=== PATIENT | male | born 1940 | race Caucasian/White ===

== ENCOUNTER 2017-02-09 04:54 | Inpatient (IN) | payer OTHER ==
[2017-01-20 14:48] VITALS: BMI 28.0
--- NOTE | 2017-01-20 15:28 | PAT Medication Instructions ---
Service Date Jan 20, 2017. Current Home Medication List Aspirin (Aspirin Ec), 81 MG PO QPM Aspirin (Aspirin Ec), 325 MG PO PRN Bimatoprost (Lumigan), 1 DROPS OPR HS Cholecalciferol (Vitamin D3), 1 TAB PO Q2D Fish Oil ([place]on-3), 2 CAP PO QAM Ibuprofen-Diphenhydramine Citr (Advil Pm), 1 TAB PO PRN Laxative (Laxative), 1 DOSE PO PRN Simvastatin (Zocor), 40 MG PO QPM Timolol Maleate (Ophth) (Timoptic-Xe 0.5% Oph), 1 DROPS OPR BID Trazodone Hcl (Trazodone), 50 MG PO HS Medication Instructions For Your Scheduled Surgery - Hold the following medications 2 weeks prior to surgery: Fish Oil (Vernon-3), 2 CAP PO QAM - Hold the following medications 7 days prior to surgery: Aspirin (Aspirin Ec), 325 MG PO PRN Ibuprofen-Diphenhydramine Citr (Advil Pm), 1 TAB PO PRN - Hold the following medications the morning of surgery: Laxative (Laxative), 1 DOSE PO PRN Cholecalciferol (Vitamin D3), 1 TAB PO Q2D - Take the following medications the morning of surgery with a sip of water: Timolol Maleate (Ophth) (Timoptic-Xe 0.5% Oph), 1 DROPS OPR BID - Take the following medications as scheduled the night before surgery: Timolol Maleate (Ophth) (Timoptic-Xe 0.5% Oph), 1 DROPS OPR BID (bring with you to hospital on day of surgery) Bimatoprost (Lumigan), 1 DROPS OPR HS (bring with you to hospital on day of surgery) Aspirin (Aspirin Ec), 81 MG PO QPM Trazodone Hcl (Trazodone), 50 MG PO HS Simvastatin (Zocor), 40 MG PO QPM Laxative (Laxative), 1 DOSE PO PRN If you have any questions please call us at [phone] or [phone] ( [place]) or [phone]
--- NOTE | 2017-01-20 16:09 | DIAGNOSTIC IMAGING REPORT ---
CHEST 2 VIEWS ROUTINE CLINICAL HISTORY: Preoperative chest COMPARISON STUDY: No previous studies for comparison. FINDINGS: The cardiac and mediastinal contours are normal. There is no evidence of focal pulmonary consolidation. There is no evidence of failure. No pleural effusions are visualized.[ IMPRESSION: No active disease in the chest. Electronically signed by: Wing Chapin M.D. 01/20/2017 4:08 PM Dictated Date/Time: 01/20/2017 4:08 PM
[2017-01-20 16:16] LABS: BASO % 0.3 %; BASO ABS # 0.02 K/uL (0-0.2); COMPLETE YES; EOS % 4.8 %; IG% 0.3 %; LYMPH % 22.7 %; LYMPH ABS # 1.81 K/uL (1.2-3.4); MEAN CELL VOLUME 88.4 fL (80-100); MEAN CORPUSCULAR HEMOGLOBIN 30.8 pg (25-34); MEAN CORPUSCULAR HGB CONC 34.9 g/dl (32-36); MEAN PLATELET VOLUME 9.2 fL (7.4-10.4); MONO % 10.3 %; NEUT % 61.6 %; PLATELET COUNT 237 K/uL (130-400); RED BLOOD COUNT 5.09 M/uL (4.7-6.1); WHITE BLOOD COUNT 7.98 K/uL (4.8-10.8)
[2017-01-20 16:20] LABS: URINE APPEARANCE CLEAR (CLEAR); URINE BILIRUBIN NEG (NEG); URINE COLOR DK YELLOW; URINE NITRITE NEG (NEG); UROBILINOGEN NEG (NEG); ZZUR CULT IF INDIC CLEAN CATCH NO
[2017-01-20 16:27] LABS: PARTIAL THROMBOPLASTIN RATIO 1.1; PROTHROMBIN TIME (PATIENT) 10.8 SECONDS (9.0-12.0)
[2017-01-20 16:28] LABS: MANUAL MICROSCOPIC REQUIRED? NO; REVIEW REQ? NO
--- NOTE | 2017-02-06 09:00 | HISTORY & PHYSICAL EXAMINATION ---
DATE OF ADMISSION: 02/09/2017 CHIEF COMPLAINT: Left knee pain. HISTORY OF PRESENT ILLNESS: Antonino is a 76-year-old male with a multiple year history of pain in his left knee. He rates his pain a 6-7/10. He has pain with his daily activities. He has limited standing and walking tolerance. Pain is worse with weightbearing. The patient has had injections, arthroscopy, physical therapy and anti-inflammatories without relief. He has failed conservative treatment and is scheduled for left knee replacement. PAST MEDICAL HISTORY: Glaucoma and hypercholesterolemia. He denies heart disease, diabetes or DVT. PAST SURGICAL HISTORY: Prostatectomy, hernia repair, left eye shunt and bilateral knee arthroscopy. SOCIAL HISTORY: The patient drinks 6-7 drinks per week. He quit smoking in 1971. He lives in a 2-story home. He lives alone and is retired. FAMILY HISTORY: Negative for DVT. MEDICATIONS: Simvastatin 40 mg daily, aspirin 81 mg daily, vitamin D3 2,000 international units daily, fish oil 1000, 300 mg daily, timolol 0.5% right eye, Lumigan 1 drop right eye, trazodone 50 mg at bedtime. ALLERGIES: None. REVIEW OF SYSTEMS: See HPI. Ten other systems reviewed, all negative. PHYSICAL EXAMINATION: VITAL SIGNS: Height 6 foot 0. Weight 209 pounds. BMI is 28. GENERAL: This is a well-developed, well-nourished male who is alert and oriented x3. Mood and affect are appropriate. HEAD, EYES, EARS, NOSE, AND THROAT: Normocephalic, atraumatic. Mucous membranes are moist and intact. NECK: Supple without lymphadenopathy. HEART: Regular rate and rhythm without murmurs, rubs or gallops. LUNGS: Clear to auscultation without wheezes or rhonchi. ABDOMEN: Soft and nontender. Bowel sounds are equal and active. EXTREMITIES: No ecchymosis, redness or warmth. He has neutral alignment. Range of motion is from 0-120 degrees with +1 to 2 laxity. He is neurovascularly intact with +5/5 strength. X-RAY EXAMINATION: AP and lateral views show joint space narrowing and osteophyte formation. IMPRESSION: Degenerative joint disease left knee. PLAN: The patient will be admitted for a left total knee arthroplasty. We will plan on aspirin for DVT prophylaxis. The patient's PCP is Dr. Ravinder Martinez in [place].
[~2017-02-09] VITALS: Ht 185.4 cm; Wt 96.0 kg
[2017-02-09] VITALS (8 sets, daily range): BP systolic 102–137; BP diastolic 59–78; PULSE 55–80; TEMP 36.4–36.6; O2SAT 94–98; Ht 185.4 cm; Wt 96.0 kg
[~2017-02-09 04:54] MED LIST: ASPI325T39 PO; ASPI81TA28 PO; BIMA0.01 OPR; CHOL1000 PO; IBUP1TAB PO; LXT PO; OMEG10007 PO; SIMV40TA2 PO; TIMO0.5S2 OPR; TRAZ50TA35 PO
[2017-02-09] MEDS ORDERED: LACTATED RINGER'S 1000ML 1,000 ML IV SCH (06:00)
[2017-02-09] MEDS ORDERED: LACTATED RINGER'S 1000ML 500 ML IV ONE (06:00)
[2017-02-09] MEDS ORDERED: METOCLOPRAMIDE HCL 10 MG TAB PO SCH (06:00)
[2017-02-09] MEDS ORDERED: FAMOTIDINE 20 MG TAB PO SCH (06:00)
[2017-02-09] MEDS ORDERED: ROPIVACAINE 5MG/ML 30 ML 150 MG, BUPIVACAINE/EPINEPHR 0.5% MPF 30 ML, KETOROLAC TROMETH... INFIL SCH ×7 (06:00)
[2017-02-09] MEDS ORDERED: ACETAMINOPHEN 500 MG TAB PO SCH (06:00)
[2017-02-09] MEDS ORDERED: GABAPENTIN 300 MG CAP PO SCH (06:00)
[2017-02-09] MEDS ORDERED: CEFAZOLIN 2000 MG/60 ML D5W 60 ML IV SCH (06:00)
[2017-02-09] MEDS ORDERED: CeleBREX 200 MG CAP PO SCH (06:00)
[2017-02-09] MEDS ORDERED: OXYCODONE HCL 10 MG TABCR (OXYCONTIN) PO SCH (06:00)
[2017-02-09] MEDS ORDERED: POLYMYXIN B SULFATE 100,000 UNITS in NSS 100ML IR SCH (06:00)
[2017-02-09] MEDS ORDERED: LACTATED RINGER'S 1000ML IV SCH (06:00)
[2017-02-09] MEDS ORDERED: VANCOMYCIN INJ 400 MG in NSS 100ML IR SCH (06:00)
[2017-02-09] MEDS ORDERED: BUPIVACAINE 0.5 % 5 MG/1 ML PF 10ML VIAL ONE (06:13)
[2017-02-09] MEDS: TRANEXAMIC ACID INJ 1,000 MG in SODIUM CHLORIDE 0.9% 100ML 100 ML IV SCH ×2 (06:21→12:10)
[2017-02-09] MEDS ORDERED: ORTHO JOINT ANESTHETIC ONE (06:34)
[2017-02-09] MEDS ORDERED: BUPIVACAINE/EPINEPHRINE 0.25% 1:200,000 30 ML VIAL ONE (06:34)
[2017-02-09] MEDS ORDERED: POVIDONE-IODINE OP SOLN 30 ML BTL ONE (06:34)
[2017-02-09] MEDS ORDERED: MIDAZOLAM HCL 1 MG/ML 2ML VIAL ONE (06:43)
[2017-02-09] MEDS ORDERED: FENTANYL CITRATE INJ 50 MCG/1 ML 2 ML VIAL ONE (06:43)
[2017-02-09] MEDS ORDERED: LIDOCAINE HCL 2% 2 ML VIAL (20MG/ML) ONE (06:43)
[2017-02-09] MEDS ORDERED: PROPOFOL IV EMULSION 10 MG/ML 20 ML VIAL IV ONE ×2 (06:43→07:53)
--- NOTE | 2017-02-09 06:51 | History & Physical Bridge Note ---
H&P Re-Evaluation Bridge Note: I have examined the patient, reviewed the History & Physical and in the interval since the performance of the History & Physical I have noted the following changes of clinical significance: No changes noted
[2017-02-09] MEDS ORDERED: ONDANSETRON INJ 2 MG/ML 2 ML VIAL IV PRN ×2 (07:15→08:15)
[2017-02-09] MEDS ORDERED: ATROPINE SULFATE 0.1 MG/ML 5ML SYR IV PRN (07:15)
[2017-02-09] MEDS ORDERED: FENTANYL CITRATE INJ 50 MCG/1 ML 2 ML VIAL IV PRN (07:15)
[2017-02-09] MEDS ORDERED: EpHEDrine SULFATE INJ 50 MG/ML AMP IV PRN (07:15)
[2017-02-09] MEDS ORDERED: EpHEDrine SULFATE 50MG/5ML SYR ONE (07:32)
[2017-02-09] MEDS: BACITRACIN 50000 UNIT VIAL ONE (08:08)
--- NOTE | 2017-02-09 08:10 | [facility] Post Operative Brief Note ---
Immediate Operative Summary Operative Date Feb 09, 2017. Pre-Operative Diagnosis Left Knee Degenerative Joint Disease Post-Operative Diagnosis Left Knee Degenerative Joint Disease Procedure(s) Performed Left Total Knee Arthroplasty, Cemented Surgeon Dr. Rizwan Espinoza Tender Labor Surgeon(s) Joao Biswas PA-C Estimated Blood Loss 50 mL Findings DJD Specimens A: Left Knee Bone and Tissue Complication(s) None Disposition Recovery Room / PACU
[2017-02-09] MEDS ORDERED: TRAMADOL HCL 50 MG TAB PO PRN (08:15)
[2017-02-09] MEDS ORDERED: ALUMINUM/MAGNESIUM/SIMETH (MAALOX MAX) 30 ML UDC PO PRN (08:15)
[2017-02-09] MEDS ORDERED: BISACODYL 10 MG SUPP PR PRN (08:15)
[2017-02-09] MEDS ORDERED: ZOLPIDEM TARTRATE 5 MG TAB PO PRN (08:15)
[2017-02-09] MEDS ORDERED: KETOROLAC TROMETHAMINE 15 MG/ML VIAL IV. PRN (08:15)
[2017-02-09] MEDS ORDERED: MAGNESIUM HYDROXIDE SUSP 30 ML UDC PO PRN (08:15)
[2017-02-09] MEDS ORDERED: SOD PHOSPHATE/SOD BIPHOSPHATE ENEMA 132 ML BTL PR PRN (08:15)
[2017-02-09] MEDS ORDERED: DiphenhydrAMINE HCL 50 MG/ML VIAL IV PRN (08:15)
[2017-02-09] MEDS ORDERED: MoRPHine SULFATE 2 MG/ML CARP IV PRN (08:15)
[2017-02-09] MEDS ORDERED: METOCLOPRAMIDE HCL INJ 5 MG/ML 2 ML VIAL IV PRN (08:15)
[2017-02-09] MEDS ORDERED: TAMSULOSIN HCL 0.4 MG CAP PO PRN (08:15)
[2017-02-09] MEDS ORDERED: MULTIVITAMIN TAB PO SCH (09:00)
--- NOTE | 2017-02-09 09:20 | DIAGNOSTIC IMAGING REPORT ---
LEFT KNEE 1 OR 2 VIEWS ROUTINE CLINICAL HISTORY: Postoperative evaluation. COMPARISON: None FINDINGS: Alignment of the total left knee arthroplasty is anatomic. No fracture or unexpected radiopaque foreign body. Surgical drains are in place. IMPRESSION: Expected findings following total left knee arthroplasty. Electronically signed by: Siva June M.D. 02/09/2017 9:18 AM Dictated Date/Time: 02/09/2017 9:17 AM
--- NOTE | 2017-02-09 10:48 | Anesthesiology Progress Note ---
Anesthesia Post Op Note Date & Time Feb 09, 2017 at 10:47 Vital Signs Pain Intensity: 0 Vital Signs Past 12 Hours Date Time Temp Pulse Resp B/P Pulse Ox O2 Delivery O2 Flow Rate FiO2 02/09/17 10:12 58 18 98 02/09/17 10:12 59 18 02/09/17 10:11 113/61 02/09/17 10:10 36.6 60 20 113/61 98 Nasal Cannula 2 02/09/17 10:07 63 23 98 02/09/17 10:07 62 23 02/09/17 10:05 103/62 02/09/17 10:02 51 18 02/09/17 10:02 51 18 98 02/09/17 10:00 108/60 02/09/17 09:57 52 16 97 02/09/17 09:57 52 16 02/09/17 09:55 108/64 02/09/17 09:52 57 14 02/09/17 09:52 57 14 97 02/09/17 09:50 107/70 02/09/17 09:47 58 21 02/09/17 09:47 59 21 98 02/09/17 09:46 55 20 98 02/09/17 09:46 55 20 02/09/17 09:45 110/68 02/09/17 09:41 57 17 02/09/17 09:41 57 17 98 02/09/17 09:40 115/69 02/09/17 09:36 61 23 02/09/17 09:36 59 23 98 02/09/17 09:35 113/75 02/09/17 09:35 52 18 113/75 98 Nasal Cannula 2 02/09/17 09:31 54 15 97 02/09/17 09:31 54 15 02/09/17 09:30 113/67 02/09/17 09:26 53 17 02/09/17 09:26 53 17 97 02/09/17 09:25 111/61 02/09/17 09:25 55 16 111/61 96 Nasal Cannula 2 02/09/17 09:21 56 15 97 02/09/17 09:21 56 15 02/09/17 09:20 102/71 02/09/17 09:19 57 14 02/09/17 09:19 56 14 96 02/09/17 09:15 114/64 02/09/17 09:14 56 20 98 02/09/17 09:14 54 20 02/09/17 09:10 110/63 02/09/17 09:09 54 22 99 02/09/17 09:09 54 22 02/09/17 09:08 53 23 98 02/09/17 09:08 52 23 02/09/17 09:05 112/64 02/09/17 09:03 58 16 02/09/17 09:03 58 16 96 02/09/17 09:01 95/63 02/09/17 08:58 59 19 02/09/17 08:58 61 19 97 02/09/17 08:55 111/62 02/09/17 08:53 55 15 02/09/17 08:53 55 15 98 02/09/17 08:47 36.0 57 14 101/57 100 Mask 10 02/09/17 05:45 36.6 62 20 137/78 95 Room Air Notes Mental Status: alert / awake / arousable, participated in evaluation Pt Amnestic to Procedure: Yes Nausea / Vomiting: adequately controlled Pain: adequately controlled Airway Patency, RR, SpO2: stable & adequate BP & HR: stable & adequate Hydration State: stable & adequate Neuraxial Anesthesia: was administered, sensory block is resolving Anesthetic Complications: no major complications apparent
[2017-02-09] MEDS: SODIUM CHLORIDE 0.9% 1000ML 1,000 ML IV SCH ×2 (12:08→17:55)
[2017-02-09] MEDS: ACETAMINOPHEN 500 MG TAB PO SCH ×2 (14:12→21:30)
[2017-02-09] MEDS ORDERED: TRANEXAMIC ACID INJ 1,000 MG in SODIUM CHLORIDE 0.9% 100ML 100 ML IV SCH (14:45)
[2017-02-09] MEDS: CEFAZOLIN IV 2,000 MG in DEXTROSE 5% 50ML 50 ML IV SCH (16:05)
--- NOTE | 2017-02-09 16:50 | OPERATIVE REPORT ---
DATE OF OPERATION: 02/09/2017 PREOPERATIVE DIAGNOSIS: Degenerative arthritis, left knee. POSTOPERATIVE DIAGNOSIS: Same. PROCEDURE: Left total knee with patient matched implant. SURGEON: Dr. Espinoza. ALIGNMENT TECHNICIAN: DANNA Stringer. ANESTHESIA: Spinal. BLOOD LOSS: 50 mL. REPLACEMENT FLUIDS: 1500 mL crystalloid. DRAINS: Hemovac x2. CULTURES: None. COMPLICATIONS: None. COMPONENTS USED: [employer] [facility] Knee System: Femur size 7, tibia size 7 x 10, patella size 38. NOTE: Joao Biswas was present and assisted throughout due to the complicated nature of this case. He helped with preparation and set up, first assisted throughout and personally closed the capsule, subcutaneous and skin layers and applied the postoperative dressing. DESCRIPTION: Following satisfactory spinal, the patient was supine. A tourniquet was placed but not inflated. The lower extremity was prepared with ChloraPrep and draped sterilely. Following a surgical time-out, a midline incision was made with a trivector approach. The knee showed grade 4 changes, most marked in the medial and lateral compartments. The cruciate ligaments were excised. The patient matched femoral block was applied. Femoral distal rotation was set and completed. The 4-in-1 block was used to finish preparation of the femur. The patient matched tibial block was applied. Tibial resection was completed. The patella was freehand cut. Soft tissue balancing was completed and a trial reduction showed good tensioning stability on the collateral ligaments, stable range of motion, and the patella tracked well. The trial components were removed, the capsule was prepared with the orthopedic cocktail and after irrigation the components were cemented with Simplex G cement. A Betadine soak was performed. When the cement had hardened, the Betadine was irrigated. Two drains were placed. The arthrotomy was closed with a running suture of 0 V-Loc. The subcutaneous tissues with 2-0 Vicryl and the skin with a running subcuticular stitch of 3-0 V-Loc. Dermabond and a dry dressing were applied. The patient was returned to his bed in stable condition. I attest to the content of the Intraoperative Record and any orders documented therein. Any exceptio ns are noted below.
[2017-02-09] MEDS: TIMOLOL GFS 0.5% OPH SOLN 74 DROPS/5 ML BTL OPR SCH (20:13)
[2017-02-09] MEDS: OXYCODONE HCL 10 MG TABCR (OXYCONTIN) PO SCH (20:13)
[2017-02-09] MEDS: SENNA 8.6 MG TAB PO SCH (20:14)
[2017-02-09] MEDS: TRAZODONE HCL 50 MG TAB PO SCH (20:14)
[2017-02-09] MEDS: ASPIRIN 81 MG ECTAB PO SCH (20:14)
[2017-02-09] MEDS: SIMVASTATIN 40 MG TAB PO SCH (20:15)
[2017-02-09] MEDS: BIMATOPROST 0.01% OP SOLN 2.5 ML BTL OPR SCH (21:30)
[2017-02-10] MEDS: CEFAZOLIN IV 2,000 MG in DEXTROSE 5% 50ML 50 ML IV SCH (00:02)
[2017-02-10] MEDS: SODIUM CHLORIDE 0.9% 1000ML 1,000 ML IV SCH (03:44)
[2017-02-10 03:50] VITALS: BP 94/53; PULSE 63; TEMP 36.5; O2SAT 96
[2017-02-10] MEDS: ACETAMINOPHEN 500 MG TAB PO SCH ×3 (05:34→21:41)
[2017-02-10 05:36] VITALS: BP 118/68
[2017-02-10 05:55] LABS: HEMATOCRIT 39.9 % (42-52); MEAN CELL VOLUME 90.1 fL (80-100); MEAN CORPUSCULAR HEMOGLOBIN 31.4 pg (25-34); MEAN CORPUSCULAR HGB CONC 34.8 g/dl (32-36); MEAN PLATELET VOLUME 9.3 fL (7.4-10.4); PLATELET COUNT 221 K/uL (130-400); RED BLOOD COUNT 4.43 M/uL (4.7-6.1); WHITE BLOOD COUNT 14.63 K/uL (4.8-10.8)
[2017-02-10 06:39] LABS: BUN/CREATININE RATIO 16.7 (10-20); CALCIUM 8.7 mg/dl (8.5-10.1); CREATININE 0.95 mg/dl (0.60-1.40); POTASSIUM 4.7 mmol/L (3.5-5.1)
--- NOTE | 2017-02-10 07:46 | Orthopedic Progress Note ---
Orthopedic Progress Note Date of Service Feb 10, 2017. Subjective Post OP Day: 1 Reports: feeling well, Denies: SOB, calf pain, chest pain, light headedness, nausea / vomiting Objective calves soft nontender, N/V intact, dressing C/D/I, A&O x3, toes mobile, hemovac drainage (350/175cc per shift) Date Time Temp Pulse Resp B/P Pulse Ox O2 Delivery O2 Flow Rate FiO2 02/10/17 07:30 Room Air 02/10/17 05:36 118/68 02/10/17 03:50 36.5 63 16 94/53 96 Room Air 02/09/17 23:15 36.5 63 18 117/61 97 Room Air 02/09/17 20:00 Room Air 02/09/17 19:02 36.5 69 18 118/63 98 Room Air 02/09/17 16:40 Room Air 02/09/17 14:54 36.4 55 16 109/63 98 Nasal Cannula 2.0 02/09/17 13:40 36.6 80 19 102/59 94 Nasal Cannula 2.0 02/09/17 12:34 57 16 113/65 98 Nasal Cannula 2.0 02/09/17 11:43 Nasal Cannula 2.0 02/09/17 11:41 56 20 105/60 96 Nasal Cannula 2.0 02/09/17 11:41 36.4 58 16 107/59 95 Nasal Cannula 2.0 02/09/17 11:39 Nasal Cannula 2.0 02/09/17 11:13 36.4 56 16 107/62 98 Nasal Cannula 2.0 02/09/17 10:12 58 18 98 02/09/17 10:12 59 18 02/09/17 10:11 113/61 02/09/17 10:10 36.6 60 20 113/61 98 Nasal Cannula 2 02/09/17 10:07 63 23 98 02/09/17 10:07 62 23 02/09/17 10:05 103/62 02/09/17 10:02 51 18 02/09/17 10:02 51 18 98 02/09/17 10:00 108/60 02/09/17 09:57 52 16 97 02/09/17 09:57 52 16 02/09/17 09:55 108/64 02/09/17 09:52 57 14 02/09/17 09:52 57 14 97 02/09/17 09:50 107/70 02/09/17 09:47 58 21 02/09/17 09:47 59 21 98 02/09/17 09:46 55 20 98 02/09/17 09:46 55 20 02/09/17 09:45 110/68 02/09/17 09:41 57 17 02/09/17 09:41 57 17 98 02/09/17 09:40 115/69 02/09/17 09:36 61 23 02/09/17 09:36 59 23 98 02/09/17 09:35 113/75 02/09/17 09:35 52 18 113/75 98 Nasal Cannula 2 02/09/17 09:31 54 15 97 02/09/17 09:31 54 15 02/09/17 09:30 113/67 02/09/17 09:26 53 17 02/09/17 09:26 53 17 97 02/09/17 09:25 111/61 02/09/17 09:25 55 16 111/61 96 Nasal Cannula 2 02/09/17 09:21 56 15 97 02/09/17 09:21 56 15 02/09/17 09:20 102/71 02/09/17 09:19 57 14 02/09/17 09:19 56 14 96 02/09/17 09:15 114/64 02/09/17 09:14 56 20 98 02/09/17 09:14 54 20 02/09/17 09:10 110/63 02/09/17 09:09 54 22 99 02/09/17 09:09 54 22 02/09/17 09:08 53 23 98 02/09/17 09:08 52 23 02/09/17 09:05 112/64 02/09/17 09:03 58 16 02/09/17 09:03 58 16 96 02/09/17 09:01 95/63 02/09/17 08:58 59 19 02/09/17 08:58 61 19 97 02/09/17 08:55 111/62 02/09/17 08:53 55 15 02/09/17 08:53 55 15 98 02/09/17 08:47 36.0 57 14 101/57 100 Mask 10 Laboratory Results 24 Hours: Test 02/10/17 05:33 Hematocrit 39.9 % Hemoglobin 13.9 g/dL Assessment & Plan Assessment: POD#1 sp left TKA Inhouse Planning Pain Management: Oxycontin, PO Tylenol, Oxy IR DVT Prophylaxis: TEDs, SCDs, ASA Discharge Planning Discharge Planning: home with home health (DC HOME TOMORROW WITH LOCAL HOME PT AGENCY. CM TO EVALUATE. HOLD DC TODAY DUE TO HEMOVAC OUTPUT.)
--- NOTE | 2017-02-10 07:47 | Discharge Instructions ---
Discharge Instructions Date of Service Feb 10, 2017. Admission Reason for Admission: Left Degenerative Arthritis - Leg/Knee Discharge Discharge Diagnosis / Problem: SP LEFT TKA Discharge Goals Goal(s): Decrease discomfort, Improve function, Increase independence Activity Recommendations Activity Limitations: per Instructions/Follow-up section . Instructions / Follow-Up Instructions / Follow-Up ACTIVITY RECOMMENDATIONS: SELF CARE INSTRUCTIONS AFTER TOTAL KNEE REPLACEMENT A. You may need to continue a physical therapy program after discharge from the hospital. There are several options available to you. Your doctor will assist you in selecting the best one for you. 1. An out-patient facility 2 to 3 times a week for therapy or home therapy. 2. Continue working on all exercises taught to you in the hospital. Your goals should be to increase bending of your knee to 90 degrees and beyond and to fully straighten your knee. B. You may progress at your own pace from walking with a walker or crutches to a cane; then to no assistive devices. C. Make walking a part of your daily routine. Be up as much as comfortable with rest periods throughout the day. Rest with leg elevation is very important. Use the ice wrap frequently for the first 3-4 weeks. D. There are no restrictions on activities. You may ride in a car, shop, participate in nail galvanizer and all social activities. E. Wear the long elastic stockings (GENI hose) 20 hours a day for 2 weeks after surgery. They can be removed several times a day for laundering and for a bath. F. You may shower, no tub baths until cleared by your doctor. SPECIAL CARE INSTRUCTIONS: VERY IMPORTANT TO READ AND REVIEW A. There are a few signs you need to watch for after you are home. Call [facility] if you notice any of the followin. Increased severe knee pain. Some pain is expected especially when you exercise. 2. Increased swelling in your leg or knee; pain or swelling of the calf muscle in either lower leg. 3. Any fluid drainage from the incision. 4. Shortness of breath or chest pain. B. Please call [facility] at if you have any concerns or questions about your operation or recovery. The doctor or his nurse will return your call promptly. C. You must take antibiotics before dental work, bladder, bowel or other surgery. Your doctor will provide you with a permanent care to carry describing this precaution. IMPORTANT: * REMEMBER TO TAKE ASPIRIN, 81 MG, TWICE DAILY FOR 4 WEEKS UNLESS OTHERWISE DIRECTED. THIS IS YOUR BLOOD THINNER. * HIGH RISK PATIENTS MAY BE PRESCRIBED A STRONGER BLOOD THINNER. THIS WILL BE PROVIDED AT DISCHARGE. * CALL IF INCREASED PAIN, REDNESS, DRAINAGE OR FEVER GREATER THAT 101. * WEAR GENI HOSE 20 HOURS PER DAY FOR 2 WEEKS. DERMABOND Prineo- This is a mesh tape dressing that is covered with glue. It should remain in place until the incision is properly healed, usually 10-14 days. This dressing is designed to naturally slough off. You may trim the excess mesh tape as it peels off. Incision may be briefly wet in a shower. Dry immediately by blotting with a clean, dry towel. Do not bath or swim until instructed by your doctor. Do not scratch, rub, or pick at the dressing. Do not apply any topical ointments or lotions until dressing is completely removed and/or instructed by your doctor. There may be a small piece of suture material at one end of your incision. Do not pull or trim this. If it is bothersome or catching on clothing, you may cover it with a band-aid. FOLLOW UP VISIT: If appointment is not already scheduled: Please call [facility] to make a follow-up appointment for 2 weeks after your surgery at . Current Hospital Diet Patient's current hospital diet: Diabetes Type 2 Diet Discharge Diet Recommended Diet: Regular Diet Procedures Procedures Performed: Left Total Knee Arthroplasty, Cemented Pending Studies Studies pending at discharge: no Medical Emergencies . Who to Call and When: Medical Emergencies: If at any time you feel your situation is an emergency, please call 911 immediately. . Non-Emergent Contact Non-Emergency issues call your: Surgeon . "Provider Documentation" section prepared by Magnolia Olsen. VTE Core Measure Inpt VTE Proph given/why not?: Leila Lindsay, SCD's PA Drug Monitoring Program Search Results: patient reviewed within database, no issues identified
[2017-02-10 08:01] VITALS: BP 125/73; PULSE 59; TEMP 36.6; O2SAT 98
[2017-02-10] MEDS: PANTOprazole SOD 40 MG TAB PO SCH (08:26)
[2017-02-10] MEDS: OXYCODONE HCL 10 MG TABCR (OXYCONTIN) PO SCH ×2 (08:27→21:38)
[2017-02-10] MEDS: ASPIRIN 81 MG ECTAB PO SCH ×2 (08:27→21:39)
[2017-02-10] MEDS: MULTIVITAMIN TAB PO SCH (08:27)
[2017-02-10] MEDS: TIMOLOL GFS 0.5% OPH SOLN 74 DROPS/5 ML BTL OPR SCH ×2 (08:27→19:50)
[2017-02-10 11:57] VITALS: BP 125/77; PULSE 61; TEMP 36.4; O2SAT 92
[2017-02-10 15:51] VITALS: BP 116/64; PULSE 65; TEMP 36.7; O2SAT 98
[2017-02-10] MEDS: SIMVASTATIN 40 MG TAB PO SCH (19:49)
[2017-02-10] MEDS ORDERED: NURSING VERBAL MED ORDER ONE (20:15)
[2017-02-10] MEDS: SENNA 8.6 MG TAB PO SCH (21:39)
[2017-02-10] MEDS: BIMATOPROST 0.01% OP SOLN 2.5 ML BTL OPR SCH (21:40)
[2017-02-10] MEDS: TRAZODONE HCL 50 MG TAB PO SCH (21:40)
[2017-02-10 23:06] VITALS: BP 112/65; PULSE 50; TEMP 36.7; O2SAT 95
[2017-02-10] MEDS: OXYCODONE HCL IR 5 MG TAB (IMMEDIATE RELEASE) PO PRN (23:22)
[2017-02-11] VITALS (7 sets, daily range): BP systolic 118–138; BP diastolic 62–74; PULSE 63–72; TEMP 36.3–36.8; O2SAT 93–99
--- NOTE | 2017-02-11 05:08 | Medical Consult ---
History General Date of Service: Feb 11, 2017. Stated Complaint: Left Degenerative Arthritis - Leg/Knee HPI The patient is a 76 year old male with past medical hx of hypercholesterolemia , Left knee Degenerative Arthritis -admitted to [facility] for left knee arthroplasty underwent left total knee arthroplasty By Dr Espinoza on 02/09/17 The patient's primary care provider is The patient's PCP is Dr. Ravinder Martinez in [place]. pt had un eventful post op recovery Today approx at 5: 30 am -pt went to bathroom to urinate , afterwards while in front of wash basin -he felt wave of nausea , diaphoresis , dizzy spell , lightheaded -felt like passing out Nursing was assisting him saw that pt turned pale , diaphoretic ,cold clammy - not responding to his name -" code purple " was called pt never lost consciousness, did not sustain any fall , pt was eased into his bed from wheel chair Vitals SBP in 114 ; pt was bradycardic in 50's , no hypoxia ; blood sugar 96 pt was given orange juice no complain of chest tightness or heaviness pt started to feel well after resting for 5 minutes , feels very wiped out and weak Nausea subsided without any meds complaining of pain on Left knee surgical site , pt still has Hemovac attached 12 leak EKG sinus bradycardia left axis deviation , no change compared to prior EKG pt was able to sit up , able to have normal conversation -asking about what happened Episode of Dizzy spell /pre syncope associated with vagal response of nausea / diaphoresis /bradycardia -in a setting with urinary Urgency /worsening of pain on left knee pt is counselled regarding benign nature of the episode No need to transfer to Tele monitoring Consult /evaluation by Medicine team placed Ortho attending updated by Nursing Historian: patient Onset: this morning Severity: moderate Complaint Status: resolved Quality of Pain: throbbing (on left knee surgical site ), sharp (on left knee surgical site ) Modifying Factors: elevation (elevation of leg end of bed ), rest Review of Systems Constitutional: reports: diaphoresis, weakness Cardiovascular: reports: syncope Gastrointestinal: reports: nausea Musculoskeletal: reports: other (left knee pain at surgical site ) Neurologic: reports: dizziness, numbness, tingling, vertigo All Other Symptoms All Other Systems: Reviewed and Negative Social History Hx Tobacco Use In Past Year?: No (SMOKED 1 PPD X 20 YRS-QUIT 1971) Smoking Status: Former Smoker Allergies Coded Allergies: No Known Allergies (Unverified , 02/09/17) Current Medications Reported Home Medications Medications Dose Route/Sig Max Daily Dose Days Date Category Dose Instructions Advil Pm (Ibuprofen-Diphenhydramine Citr) 1 Tab Tab 1 Tab PO PRN 01/20/17 Reported Aspirin Ec (Aspirin) 325 Mg Tab 325 Mg PO PRN 01/20/17 Reported Laxative (Miscellaneous) . 1 Dose PO PRN 01/20/17 Reported Timoptic-Xe 0.5% Oph (Timolol Maleate (Ophth)) 0.5 % Brittny 1 Drops OPR BID 01/20/17 Reported Lumigan (Bimatoprost) 0.01 % Brittny 1 Drops OPR HS 30 01/20/17 Reported Trazodone (Trazodone HCl) 50 Mg Tab 50 Mg PO HS 01/20/17 Reported Vitamin D3 (Cholecalciferol) 1,000 Unit Tab 1 Tab PO Q2D 90 01/20/17 Reported PM [place]-3 (Fish Oil) 1 Ea Cap 2 Cap PO QAM 01/20/17 Reported Aspirin Ec (Aspirin) 81 Mg Tab 81 Mg PO QPM 01/20/17 Reported Zocor (Simvastatin) 40 Mg Tab 40 Mg PO QPM 01/20/17 Reported Physical Physical Exam Vital Signs: Date Time Temp Pulse Resp B/P Pulse Ox O2 Delivery O2 Flow Rate FiO2 02/10/17 23:20 Room Air 02/10/17 23:06 36.7 50 15 112/65 95 Room Air 02/10/17 17:30 Room Air 02/10/17 15:51 36.7 65 16 116/64 98 Room Air 02/10/17 11:57 36.4 61 16 125/77 92 Room Air 02/10/17 08:01 36.6 59 18 125/73 98 Room Air 02/10/17 07:30 Room Air 02/10/17 05:36 118/68 General Appearance: other (pale /diaphoretic in initial eval , later resolved spontaneously ) Eyes: SCLERAE NORMAL Respiratory: BREATH SOUNDS NORMAL, CLEAR TO AUSCULTATION, NO RESPIRATORY DISTRESS Cardiovasular: REGULAR RATE/RHYTHM Lower Extremities: other (s/p left knee replacement surgery , Hemovac present , normal peripheral pulse , extremity warm , normal capillary refill ) Pulses: dorsalis pedis (R) (2+), dorsalis pedis (L) (2+) Neuro: ALERT, ORIENTED x 3, NORMAL SPEECH Diagnostics Labs Results Past 24 Hours Test 02/10/17 05:33 Range/Units White Blood Count 14.63 4.8-10.8 K/uL Red Blood Count 4.43 4.7-6.1 M/uL Hemoglobin 13.9 14.0-18.0 g/dL Hematocrit 39.9 42-52 % Mean Corpuscular Volume 90.1 80-100 fL Mean Corpuscular Hemoglobin 31.4 25-34 pg Mean Corpuscular Hemoglobin Concent 34.8 32-36 g/dl RDW Standard Deviation 45.3 36.4-46.3 fL RDW Coefficient of Variation 13.8 11.5-14.5 % Platelet Count 221 130-400 K/uL Mean Platelet Volume 9.3 7.4-10.4 fL Sodium Level 145 136-145 mmol/L Potassium Level 4.7 3.5-5.1 mmol/L Chloride Level 113 98-107 mmol/L Carbon Dioxide Level 25 21-32 mmol/L Anion Gap 7.0 3-11 mmol/L Blood Urea Nitrogen 16 7-18 mg/dl Creatinine 0.95 0.60-1.40 mg/dl Est Creatinine Clear Calc Drug Dose 78.3 ml/min Estimated GFR () 88.5 Estimated GFR (Non- 76.4 BUN/Creatinine Ratio 16.7 10-20 Random Glucose 117 70-99 mg/dl Calcium Level 8.7 8.5-10.1 mg/dl EKG Interpretation: NORMAL EKG Impression Assessment and Plan PRESYNCOPE /BRIEF PERIOD OF UNRESPONSIVENESS -due to vaso vagal response in setting of pain -resolved spontaneously -supportive care -H&H stable 13-> 12 mild drop due to acute blood loss anemia matt/post op Hemovac drainage should not precipitate any symptom -no cardiac testing or intervention needed LEFT KNEE TOTAL KNEE ARTHROPLASTY surgery performed by Dr Espinoza on 02/09/17 recovering well post op HYPERLIPIDEMIA : cont statin FULL CODE DVT PROPHYLAXIS : Per Ortho DISPOSITION : pt should be observe at least for 12-24 hrs to assure hemodynamic stability benign Syncope , no further Cardiac /Neuro work up needed Admit To Med/Surg Code Status Level 1 - Full Code DVT Prophylaxis other (Aspirin ) Additional Copies To Rizwan Espinoza M.D.
[2017-02-11] MEDS: OXYCODONE HCL IR 5 MG TAB (IMMEDIATE RELEASE) PO PRN (05:16)
[2017-02-11] MEDS: ACETAMINOPHEN 500 MG TAB PO SCH ×3 (07:10→20:54)
--- NOTE | 2017-02-11 08:16 | Orthopedic Progress Note ---
Orthopedic Progress Note Date of Service Feb 11, 2017. Subjective Post OP Day: 2 Denies: SOB, calf pain, chest pain, light headedness, nausea / vomiting Additional Notes: CODE PURPLE THIS AM IN THE BATHROOM. PATIENT NOW SITTING IN BED, STILL SLIGHTLY LIGHT HEADED. MEDICINE WAS CONSULTED Objective calves soft nontender, N/V intact, incision C/D/I, A&O x3, toes mobile Date Time Temp Pulse Resp B/P Pulse Ox O2 Delivery O2 Flow Rate FiO2 02/11/17 07:15 99 Room Air 02/11/17 06:30 36.5 65 16 118/74 99 Nasal Cannula 2.0 02/10/17 23:20 Room Air 02/10/17 23:06 36.7 50 15 112/65 95 Room Air 02/10/17 17:30 Room Air 02/10/17 15:51 36.7 65 16 116/64 98 Room Air 02/10/17 11:57 36.4 61 16 125/77 92 Room Air Laboratory Results 24 Hours: Test 02/11/17 05:15 Hematocrit 36.0 % Hemoglobin 12.8 g/dL Assessment & Plan Assessment: POD#2 sp left TKA VASOVAGAL EPISODE Plan: HGB STABLE, BP STABLE. WILL ENCOURAGE FLUID INTAKE TODAY. TAKE IT EASY WITH PT. HOLD DC TODAY Inhouse Planning Pain Management: Oxycontin, PO Tylenol, Oxy IR DVT Prophylaxis: TEDs, SCDs, ASA Discharge Planning Discharge Planning: home with home health (DC HOME TOMORROW WITH LOCAL HOME PT AGENCY. CM TO EVALUATE. HOLD DC TODAY DUE TO HEMOVAC OUTPUT.)
[2017-02-11] MEDS: TIMOLOL GFS 0.5% OPH SOLN 74 DROPS/5 ML BTL OPR SCH ×2 (09:17→19:51)
[2017-02-11] MEDS: MULTIVITAMIN TAB PO SCH (09:17)
[2017-02-11] MEDS: ASPIRIN 81 MG ECTAB PO SCH ×2 (09:17→20:51)
[2017-02-11] MEDS: PANTOprazole SOD 40 MG TAB PO SCH (09:18)
[2017-02-11] MEDS: OXYCODONE HCL 10 MG TABCR (OXYCONTIN) PO SCH ×2 (09:20→20:52)
--- NOTE | 2017-02-11 17:57 | Progress Note ---
Internal Med Progress Note Date of Service: Feb 11, 2017. Provider Documentation: SUBJECTIVE: Patient is seen and examined at bedside. States feeling well. Knee pain is controlled. Denies any chest pain, SOB, dizziness, palpitations, headache, blurry vision. Offers no complaints. OBJECTIVE: Vital Signs-as noted below Physical Exam: General Appearance:Moderately built and nourished, no apparent distress Head: normocephalic, Atraumatic Eyes: normal inspection, EOMI, PERRLA Neck: supple, Trachea midline Respiratory/Chest: Normal breath sounds, CTA Cardiovascular: S1, S2, No murmur Abdomen/GI:Soft, Non tender, Bowel sounds present Extremities/Musculoskelatal:normal inspection, no edema, Left Knee is surgical bandage, Hemovac present Neurologic/Psych:AAOX3, grossly no focal neurological deficits Skin: normal color, warm Lab data as noted below. ASSESSMENT & PLAN: PRESYNCOPE Likely vasovagal in origin Currently denies any symptoms Monitor No further work up needed if no recurrence of symptoms LEFT TOTAL KNEE ARTHROPLASTY surgery performed by Dr Espinoza on 02/09/17 Doing well post OP Vitals stable PT/OT Wound care HYPERLIPIDEMIA : cont statin CODE STATUS FULL CODE DVT PROPHYLAXIS : Per Ortho DISPOSITION: Per Ortho Vital Signs: Date Time Temp Pulse Resp B/P Pulse Ox O2 Delivery O2 Flow Rate FiO2 02/11/17 15:32 36.3 72 16 138/66 93 Room Air 02/11/17 11:39 66 16 119/62 99 Room Air 02/11/17 10:33 36.7 63 19 123/67 95 Room Air 02/11/17 09:43 66 99 02/11/17 07:15 99 Room Air 02/11/17 06:30 36.5 65 16 118/74 99 Nasal Cannula 2.0 02/10/17 23:20 Room Air 02/10/17 23:06 36.7 50 15 112/65 95 Room Air Lab Results: Results Past 24 Hours Test 02/11/17 04:56 02/11/17 05:15 02/11/17 05:45 02/11/17 06:37 Range/Units Bedside Glucose 96 104 128 70-99 mg/dl Hemoglobin 12.8 14.0-18.0 g/dL Hematocrit 36.0 42-52 % Test 02/11/17 11:57 4/12/17 17:22 Range/Units Bedside Glucose 88 73 70-99 mg/dl
[2017-02-11] MEDS ORDERED: SIMVASTATIN 40 MG TAB PO SCH (18:00)
[2017-02-11] MEDS: BIMATOPROST 0.01% OP SOLN 2.5 ML BTL OPR SCH (20:51)
[2017-02-11] MEDS: TRAZODONE HCL 50 MG TAB PO SCH (20:52)
[2017-02-11] MEDS: SENNA 8.6 MG TAB PO SCH (20:52)
[2017-02-12] MEDS: ACETAMINOPHEN 500 MG TAB PO SCH ×2 (05:37→13:40)
--- NOTE | 2017-02-12 07:40 | Orthopedic Progress Note ---
Orthopedic Progress Note Date of Service Feb 12, 2017. Subjective Post OP Day: 3 Denies: SOB, chest pain, light headedness, nausea / vomiting Additional Notes: PT CO OF ACHING BUT DOES NOT WANT PAINMEDS CONSTIPATED NO BM FOR DAYS Objective calves soft nontender, N/V intact, incision C/D/I, A&O x3, toes mobile, hemovac drainage (75 LAST ) ROM 0 TO 100 Date Time Temp Pulse Resp B/P Pulse Ox O2 Delivery O2 Flow Rate FiO2 02/11/17 23:40 Room Air 02/11/17 23:28 36.8 72 18 120/68 94 Room Air 02/11/17 16:30 Room Air 02/11/17 15:32 36.3 72 16 138/66 93 Room Air 02/11/17 11:39 66 16 119/62 99 Room Air 02/11/17 10:33 36.7 63 19 123/67 95 Room Air 02/11/17 09:43 66 99 Assessment & Plan Assessment: POD# 3 sp left TKA VASOVAGAL EPISODE RESOLVED Plan: HGB STABLE, BP STABLE. WILL ENCOURAGE FLUID INTAKE TODAY. TAKE IT EASY WITH PT. PT WILL BENEFIT FROM SNF STAY LIVES ALONE [facility] Inhouse Planning Pain Management: Oxycontin, PO Tylenol, Oxy IR DVT Prophylaxis: TEDs, SCDs, ASA Discharge Planning Discharge Planning: retirement facility Pain Management: PO Tylenol (CONSIDER TRAMADOL DC OXYCONTIN ), Oxy IR DVT Prophylaxis: TEDs, ASA
[2017-02-12] MEDS ORDERED: ACET-1138 PO (07:46)
[2017-02-12] MEDS ORDERED: ONDA8TAB6 PO (07:46)
[2017-02-12] MEDS ORDERED: ULT50X PO (07:46)
[2017-02-12] MEDS ORDERED: SNK PO (07:46)
[2017-02-12] MEDS ORDERED: RXC5 PO (07:46)
[2017-02-12] MEDS ORDERED: ASPI81TA28 PO (07:46)
[2017-02-12] MEDS ORDERED: CLB200 PO (07:46)
[2017-02-12 07:57] VITALS: BP 122/71; PULSE 78; TEMP 36.4; O2SAT 96
[2017-02-12] MEDS ORDERED: CeleBREX 200 MG CAP PO SCH (08:00)
[2017-02-12] MEDS: TIMOLOL GFS 0.5% OPH SOLN 74 DROPS/5 ML BTL OPR SCH (08:14)
[2017-02-12] MEDS: PANTOprazole SOD 40 MG TAB PO SCH (08:17)
[2017-02-12] MEDS: ASPIRIN 81 MG ECTAB PO SCH (08:17)
[2017-02-12] MEDS: MULTIVITAMIN TAB PO SCH (08:17)
[2017-02-12] MEDS ORDERED: POLYETHYLENE (MIRALAX) 17 GM PACK ONE (08:28)
[2017-02-12] MEDS ORDERED: POLYETHYLENE (MIRALAX) 17 GM PACK PO SCH (09:00)
[2017-02-12 12:50] VITALS: BP 122/71; PULSE 78; TEMP 36.4; O2SAT 96
--- NOTE | 2017-02-16 16:28 | DISCHARGE SUMMARY ---
DISCHARGE DIAGNOSIS: Degenerative joint disease, left knee. SECONDARY DIAGNOSES: Glaucoma and hypercholesterolemia. CONSULTS: Dr. Renuka Garner. COMPLICATIONS: Syncopal episode, 02/11/2017. PROCEDURE: Left total knee arthroplasty performed by Dr. Rizwan Espinoza on 02/09/2017. BRIEF HISTORY: As dictated in history and physical. HOSPITAL SUMMARY: The patient was admitted on the above date and had the above-noted surgery performed which he tolerated well. On the first postoperative day, he was feeling well and had no complaints. Calves were soft and nontender, neurovascularly intact. Dressings clean, dry and intact. Toes were mobile. Hemoglobin was 13.9, vital signs were stable and he was started on physical therapy protocol and continued on DVT prophylaxis and pain management. By his second postoperative day, he denied shortness of breath, calf pain, chest pain or lightheadedness. A code purple was called that morning in the bathroom and the patient was sitting in bed and is still slightly lightheaded. Medicine service was consulted. The patient had gone to the restroom, became lightheaded and dizzy and apparently had a syncopal episode. Calves were soft, nontender, neurovascularly intact. Incision was clean, dry and intact. Toes were mobile. Hemoglobin was 12.8 and plans were to hold his DC until medicine could see the patient and follow his progress. He was seen by Dr. Garner, who felt that the patient had a benign syncopal episode. Plan was to keep him for another 12-24 hours to make sure he was hemodynamically stable and was progressing. The patient continued to progress over the next day or so and had no more episodes of syncope. He was progressing with his physical therapy and by 02/12/2017 he had no complaints of shortness of breath, chest pain or lightheadedness. He had some aching in his knee. Calves were soft, nontender, neurovascularly intact. Incision was clean, dry and intact. Toes were mobile. It was felt the patient would benefit from a rehab stay post-discharge with [facility] which was chosen and the patient was given authorization from insurance companies and was otherwise remaining stable and it was felt that he could be transferred to [facility] on 02/12/2017 for further physical therapy and care. For further review, please see chart. LABORATORY AND X-RAY DATA: As per chart. DISCHARGE INSTRUCTIONS: The patient was discharged to [facility] for 02/12/2017. ACTIVITY: Follow TK instruction sheets and special care instructions as noted. FOLLOWUP: With Dr. Espinoza in 2 weeks. The patient to call for appointment if one has not been made for you. DISCHARGE MEDICATIONS: Acetaminophen 1000 mg p.o. q. 8 hours, Celebrex 200 mg p.o. daily, Zofran 8 mg p.o. q. 8 hours p.r.n. nausea, oxycodone 5-10 mg p.o. q. 4 hours p.r.n., senna 17.2 mg p.o. at bedtime, tramadol 50-100 mg p.o. q. 4 hours p.r.n. Resume taking aspirin 81 mg p.o. b.i.d. for 30 days, afterwards to resume 81 mg tablet daily as prior; Lumigan 1 drop OPR at bedtime, vitamin D3 one tab p.o.q. 2 days, fish oil caplet 2 caps p.o. q.a.m., laxative 1 dose p.o. p.r.n., simvastatin 40 mg p.o. q.p.m., timolol ophthalmologic 1 drop OPR b.i.d., trazodone 50 mg at bedtime. Stop taking Advil PM.
== END 2017-02-12 14:15 | DRG 470 ==
LOC: ENRESERVTM → ENRESERVDT → C.ACU 04:54 → C.3E 06:30
PROVIDERS: ADMIT Orthopaedic Surgery; ATTEND Orthopaedic Surgery
PROC: 0SRD0J9 Replacement of Left Knee Joint with Synthetic Substitute, Cemented, Open Approach (ICD-10-PCS; principal; 2017-02-12)
DX: M17.12 Unilateral primary osteoarthritis, left knee (principal); H40.9 Unspecified glaucoma; E78.00 Pure hypercholesterolemia, unspecified; Z79.82 Long term (current) use of aspirin; E78.5 Hyperlipidemia, unspecified; R55 Syncope and collapse; Z87.891 Personal history of nicotine dependence